=== PATIENT | female | born 1995 | race Caucasian/White ===

== ENCOUNTER 2018-03-02 15:50 | Emergency (ER) | payer OTHER ==
[2018-03-02] MEDS ORDERED: Acetaminophen 500 MG TAB ONE (16:40)
== END 2018-03-02 16:42 | disposition home or self-care (01) ==
LOC: ERS 15:50
DX: S09.90XA Unspecified injury of head, initial encounter (principal); S80.812A Abrasion, left lower leg, initial encounter; V89.2XXA Person injured in unspecified motor-vehicle accident, traffic, initial encounter
CPT/HCPCS: 99283